=== PATIENT | female | born 1995 | race Caucasian/White ===

== ENCOUNTER 2019-07-29 06:01 | Inpatient (IN) | payer MEDICAID ==
[~2019-07-29] VITALS: Ht 162.6 cm; Wt 54.9 kg
[2019-07-29] MEDS ORDERED: LACTATED RINGERS 1,000 ML IV SCH (06:30)
[2019-07-29 06:53] LABS: UCG SCREEN NEGATIVE
[2019-07-29] MEDS ORDERED: IOPAMIDOL 20 ML VIAL IT ONE ×2 (07:12→07:13)
[2019-07-29] MEDS ORDERED: SKIN ADHESIVE 0.7 GM EA TOP ONE (07:13)
[2019-07-29] MEDS ORDERED: LIDOCAINE HCL 1% 20ML VIAL (Pyxis) INJ ONE (07:13)
[2019-07-29] MEDS ORDERED: BUPIVACAINE HCL 0.5% (5MG/ML) 50ML ONE (07:14)
[2019-07-29] MEDS ORDERED: FENTANYL CITRATE/PF 50MCG/ML 2ML VIAL ONE ×3 (07:50→08:27)
[2019-07-29] MEDS ORDERED: PROPOFOL 200MG/20ML VIAL IV ONE (07:51)
[2019-07-29] MEDS ORDERED: NEOSTIGMINE METHYLSULFATE 1MG/ML 10 ML VIAL ONE (07:51)
[2019-07-29] MEDS ORDERED: METOCLOPRAMIDE HCL 10MG/2ML VIAL ONE (07:51)
[2019-07-29] MEDS ORDERED: ROCURONIUM BROMIDE 10MG/ML VIAL 5ML IV ONE (07:51)
[2019-07-29] MEDS ORDERED: CEFAZOLIN SODIUM 1000MG/VIAL ONE (07:51)
[2019-07-29] MEDS ORDERED: LIDOCAINE HCL/PF 1% 10 MG/ML 5ML VIAL ONE (07:51)
[2019-07-29] MEDS ORDERED: GLYCOPYRROLATE 0.2 MG/ML 2ML VIAL ONE (07:51)
[2019-07-29] MEDS ORDERED: ONDANSETRON HCL 4MG/2ML INJ ONE ×2 (07:51→14:53)
[2019-07-29] MEDS ORDERED: DEXAMETHASONE 4MG/ML 1ML VIAL ONE (07:51)
[2019-07-29] MEDS ORDERED: SODIUM CHLORIDE 0.9% 10ML VIAL ONE (07:51)
[2019-07-29] MEDS ORDERED: SUCCINYLCHOLINE CHLORIDE 200MG/10ML IV ONE (07:51)
[2019-07-29] MEDS ORDERED: MIDAZOLAM HCL 2 MG/2 ML VIAL ONE (07:51)
[2019-07-29] MEDS ORDERED: ERGO400C PO (07:59)
[2019-07-29] MEDS ORDERED: SODIUM CHLORIDE 0.9% 1,000 ML IV ONE (09:19)
[2019-07-29] MEDS ORDERED: ONDANSETRON HCL 4MG/2ML INJ IV PRN ×2 (09:30→09:45)
[2019-07-29] MEDS ORDERED: MEPERIDINE HCL/PF 25MG/ML CPJ IV PRN ×2 (09:30)
[2019-07-29] MEDS ORDERED: MORPHINE SULFATE 2 MG/ML CPJ (NOT FOR IM USE) IV PRN (09:30)
[2019-07-29] MEDS: HYDROMORPHONE HCL/PF 2MG/ML CPJ IV PRN ×2 (09:42→10:40)
[2019-07-29 15:56] VITALS: BP 94/54
[2019-07-29 16:00] VITALS: BP 94/54
[2019-07-29] MEDS ORDERED: HYDROMORPHONE HCL/PF 2MG/ML CPJ IV PRN (16:00)
[2019-07-29] MEDS: DEXT 5%/0.45% NACL 1000ML 1,000 ML IV SCH (16:25)
[2019-07-29 17:53] LABS: HEMATOCRIT 36.8 % (36.0-48.0); HEMOGLOBIN 12.1 g/dL (12.0-16.0); MEAN CORPUSCULAR HEMOGLOBIN 28.5 pg (28.0-32.0); MEAN CORPUSCULAR VOLUME 86.7 fL (81.0-99.0); PLATELET 176 x1000/uL (130-400); RED BLOOD CELL COUNT 4.25 mill/uL (4.2-5.4)
[2019-07-29 18:35] LABS: CHLORIDE 106 mEq/L (98-107)
[2019-07-29 20:00] VITALS: BP 95/52
[2019-07-29] MEDS: KETOROLAC 30MG/ML VIAL IV SCH (21:00)
[2019-07-30] VITALS: BP 103/59
[2019-07-30] MEDS: KETOROLAC 30MG/ML VIAL IV SCH ×2 (03:00→08:19)
[2019-07-30] MEDS: DEXT 5%/0.45% NACL 1000ML 1,000 ML IV SCH (03:04)
[2019-07-30 04:00] VITALS: BP 92/55
[2019-07-30 08:00] VITALS: BP 102/66
[2019-07-30 10:14] VITALS: BP 102/66
== END 2019-07-30 10:57 | disposition home or self-care (01) | DRG 263 ==
LOC: OR 06:01 → 6EST 06:02
PROVIDERS: ADMIT Specialist; ATTEND Specialist
PROC: 0FT44ZZ Resection of Gallbladder, Percutaneous Endoscopic Approach (ICD-10-PCS; principal; 2019-07-29)
DX: K80.20 Calculus of gallbladder without cholecystitis without obstruction (principal); Z79.899 Other long term (current) drug therapy
CPT/HCPCS: 36415; 80048; 81025; 85027; 88304; J0330; J0690; J1100; J1170; J1885; J2250; J2405; J2704; J2710; J2765; J3010; J3490; Q9966

== ENCOUNTER 2019-08-03 16:50 | Emergency (ER) | payer MEDICAID ==
[~2019-08-03] VITALS: Ht 172.7 cm; Wt 64.0 kg
[~2019-08-03 16:50] MED LIST: ERGO400C PO
[2019-08-03 17:09] VITALS: BP 116/75
[2019-08-03 19:07] LABS: BASOPHILS % 0.9 % (0.0-2.0); EOSINOPHILS % 1.8 % (0.0-5.0); HEMATOCRIT. 40.6 % (36.0-48.0); HEMOGLOBIN. 13.6 g/dL (12.0-16.0); LYMPHOCYTES % 24.2 % (20.0-50.0); MEAN CORPUSCULAR HEMOGLOBIN 28.7 pg (28.0-32.0); MEAN CORPUSCULAR VOLUME 85.6 fL (81.0-99.0); MEAN PLATELET VOLUME 8.3 fl (7.4-10.4); MONOCYTES % 9.7 % (2.0-8.0); NEUTROPHILS % 63.4 % (40.0-76.0); PLATELET 222 x1000/uL (130-400); RED BLOOD CELL COUNT 4.74 mill/uL (4.2-5.4); RED CELL DISTRIBUTION WIDTH 13.1 % (11.6-14.6)
[2019-08-03 19:12] LABS: PROTHROMBIN TIME 10.7 sec (9.6-11.0)
[2019-08-03 19:15] LABS: CHLORIDE 104 mEq/L (98-107)
== END 2019-08-03 20:40 | disposition left against medical advice (07) ==
LOC: ER 16:50
DX: G89.18 Other acute postprocedural pain (principal)
CPT/HCPCS: 36415; 71045; 80053; 85025; 99284